=== PATIENT | female | born 1970 | race Native Hawaiian/Other Pacific Islander ===

== ENCOUNTER 2016-10-11 08:56 | Day surgery (SDC) | payer BC, OTHER ==
[2016-10-05 09:53] VITALS: BMI 20.5
[2016-10-11 10:13] VITALS: O2SAT 100
[2016-10-11] MEDS ORDERED: Lactated Ringer's 1,000 ML IV ONE (12:23)
[2016-10-11] MEDS ORDERED: Midazolam 2 MG/2 ML VIAL ONE (12:27)
[2016-10-11] MEDS ORDERED: Propofol 10 mg/ml Inj (20 ML) ONE (12:28)
[2016-10-11] MEDS ORDERED: Lidocaine Hydrochloride 5 ML INJ ONE (12:29)
[2016-10-11] MEDS ORDERED: HYDROmorphone 0.5 mg/0.5 ml ISec IVP PRN (12:55)
--- NOTE | 2016-10-11 13:11 | PCM.SURG1 ---
Surgeon's Initial Post Op Note - Surgeon's Notes Surgeon: josiane Pradhan [employer] Analyst: none Type of Anesthesia: General LMA Pre-Operative Diagnosis: endometrialy polyp Operative Findings: uterine cavity scarred from previous myomectomy, long endometrial polyp, no evidence of perforation, bartholin gland not inflamed or swollen Post-Operative Diagnosis: same Operation Performed: hysteroscopy D&C myosure Specimen/Specimens Removed: directed endometrial curetting and polyp Estimated Blood Loss: EBL {In ML}: 5 (NS deficit 248) Date of Surgery/Procedure: 10/11/16 Time of Surgery/Procedure: 13:11
[2016-10-11 15:58] VITALS: BP 102/64; PULSE 63; RESP 18; TEMP 98
--- NOTE | 2016-10-13 03:06 | OP ---
PROCEDURE DATE: 10/11/2016 SURGEON: Darlene Pradhan MD [employer] SAL[employer] REPRESENTATIVE: None. TYPE OF ANESTHESIA: General LMA. PREOPERATIVE DIAGNOSIS: Endometrial polyp. POSTOPERATIVE DIAGNOSES: Endometrial polyp. OPERATIVE FINDINGS: Uterine cavity scarred from previous myomectomy, long endometrial polyp. There was no evidence of perforation at the end of the procedure. Bartholin gland was not inflamed or swol raul. OPERATIVE PROCEDURE: Hysteroscopy directed D and C, MyoSure polypectomy. SPECIMEN: Directed endometrial curetting and polyp. ESTIMATED BLOOD LOSS: 5 mL. NORMAL SALINE FLUID DEFICIT: 248 mL. OPERATIVE INDICATION: The patient is a 45-year-old with an endometrial polyp that failed medical man agement. On office diagnostic hysteroscopy, she was found to have a long endometrial polyp with farida tional polypoid lining. She was consented for the above procedure. OPERATIVE PROCEDURE: The patient was taken to the OR and time-out was performed. She was placed in dorsal lithotomy position, prepped, and draped in the usual sterile fashion. The cervix was visualiz ed, grasped with single tooth tenaculum. The cervix was serially dilated until we could allow the pa ssage of the operative hysteroscope. After visualizing the findings as above, the MyoSure resectosco pe was used to directly sample the lining and perform polypectomy. There was excellent hemostasis at the end of the procedure. All laps, needles, sharps, and instruments were removed from the uterus a nd count was correct x 2. POSTOPERATIVE CONDITION: Stable for PACU. Darlene Pradhan MD cc: [id number] TT: 10/13/2016 03:05:56 tn
== END 2016-10-11 15:45 | disposition home or self-care (01) ==
LOC: C.SDS 08:56
PROVIDERS: ATTEND Obstetrics & Gynecology
DX: N84.0 Polyp of corpus uteri (principal)
CPT/HCPCS: 36415; 58558; 86850; 86900; 88305; J2250; J2405; J2704; J3010; J7120